=== PATIENT | female | born 1990 | race Hispanic/Latino ===

== ENCOUNTER 2017-04-27 20:26 | Emergency (ER) | payer BC, OTHER ==
--- NOTE | 2017-04-27 22:24 | RAD ---
LEFT ELBOW TWO VIEWS: History: Trauma. Comparison: None. FINDINGS: No displaced fracture or malalignment. No significant joint effusion. IMPRESSION: No acute abnormality. POS: [facility]
--- NOTE | 2017-04-27 22:28 | RAD ---
CHEST ONE VIEW: History: Trauma. Comparison: 2016 FINDINGS: Lungs are clear. No pneumothorax or effusion. Cardiac silhouette and mediastinal contours are within normal limits. No displaced rib fracture. IMPRESSION: No acute intrathoracic abnormality. POS: [facility]
--- NOTE | 2017-04-27 22:54 | CT ---
CT CERVICAL SPINE WITHOUT CONTRAST: History: Trauma. Comparison: None. FINDINGS: The occipital condyles are intact. Odontoid process is intact. Mastoids are clear. There is a small accessory ossicle of the anterior arch of C1. No acute fracture or malalignment. Lung apices are clear. Paraspinal soft tissues are unremarkable. IMPRESSION: No acute fracture or malalignment of the cervical spine. POS: [facility]
== END 2017-04-27 21:35 | disposition home or self-care (01) ==
LOC: ERS 20:26
DX: S10.93XA Contusion of unspecified part of neck, initial encounter (principal); J45.909 Unspecified asthma, uncomplicated; S50.02XA Contusion of left elbow, initial encounter; V44.5XXA Car driver injured in collision with heavy transport vehicle or bus in traffic accident, initial encounter; W22.11XA Striking against or struck by driver side automobile airbag, initial encounter
CPT/HCPCS: 71045; 72125

== ENCOUNTER 2018-01-19 15:28 | Emergency (ER) | payer BC, OTHER ==
[2018-01-19 16:00] LABS: Bilirubin Negative (Negative); Blood, Urine Large (Negative); Clarity CLOUDY (Clear); Glucose, Urine (Dipstick) Negative (Negative); Leukocyte Small (Negative); Nitrite Positive (Negative); Protein, Urine (Dipstick) Trace mg/dL (Neg-Trace); Specific Gravity, Urine 1.022 (1.002-1.036)
[2018-01-19 16:01] LABS: #Basophils 0.1 thou/uL (0.0-0.2); #Eosinphils 0.4 thou/uL (0.0-0.7); #Lymphocytes 1.5 thou/uL (1.20-3.40); #Monocytes 0.5 thou/uL (0.11-0.59); #Neutrophils 5.3 thou/uL (1.40-6.50); %Basophils 0.7 % (0.0-1.0); %Eosinophils 5.6 % (0.0-10.0); %Lymphocytes 18.7 % (21.0-51.0); Hemoglobin 13.3 g/dL (12.0-16.0); Mean Corpuscular HGB CONC 33.1 g/dL (32.0-36.0); Mean Corpuscular Volume 87.5 fL (78.0-98.0); Mean Platelet Volume 7.9 fL (7.4-10.4); Platelet Count 240 thou/uL (130-400); RBC Distribution Width 12.3 % (11.5-14.5); White Blood Cell (WBC) Count 7.8 thou/uL (4.8-10.8)
[2018-01-19 16:01] LABS: Pregnancy Test - Urine (BHCG) Negative (Negative); Pregu Control Background? CLEAR/WHITE (CLR/WHITE); Pregu Control Bar Appear? YES (CONTROL BAR); Specific Gravity 1.022 (1.002-1.036)
[2018-01-19 16:03] LABS: Bacteria/HPF 4+ HPF (None Seen); Hyaline Casts/LPF 4-6 HYALINE CAST LPF (0-3 Hyaline); Pathc Cast-AUWi Flag 0.72 (0-2.49); RBC/HPF 21-50 HPF (0-3)
[2018-01-19 16:23] LABS: ALT (SGPT) 30 U/L (8-55); AST (SGOT) 22 U/L (5-34); Albumin 4.1 g/dL (3.5-5.0); Alkaline Phosphatase 68 U/L (40-150); Anion Gap 8 mmol/L (10-20); BUN (Urea Nitrogen) 7 mg/dL (7.0-18.7); Bilirubin, Total 0.6 mg/dL (0.2-1.2); Calc. Creatinine Clearance 0 mL/min (70-130); Calcium 8.9 mg/dL (7.8-10.44); Carbon Dioxide 29 mmol/L (22-29); Chloride 103 mmol/L (98-107); Estimated GFR-MDRD 85; Glucose 128 mg/dL (70-105); Lipase 27 U/L (8-78); Potassium 3.8 mmol/L (3.5-5.1); Protein, Total 7.1 g/dL (6.0-8.3); Sodium 136 mmol/L (136-145)
[2018-01-19] MEDS ORDERED: Acetaminophen 500 MG TAB ONE (19:01)
== END 2018-01-19 19:19 | disposition home or self-care (01) ==
LOC: ERS 15:28
DX: K52.9 Noninfective gastroenteritis and colitis, unspecified (principal); N39.0 Urinary tract infection, site not specified; J45.909 Unspecified asthma, uncomplicated
CPT/HCPCS: 36415; 80053; 81003; 81015; 81025; 83690; 85025; 87077; 87086; 87186; 99284